=== PATIENT | female | born 1985 | race African-American/Black ===

== ENCOUNTER 2017-03-23 05:08 | Day surgery (SDC) | payer OTHER ==
[2017-03-16 11:41] VITALS: BMI 43.0
[2017-03-23] MEDS ORDERED: DESFLURANE GAS 240 ML BOTTLE IH ONE (07:20)
[2017-03-23] MEDS ORDERED: MIDAZOLAM HCL 2 MG/2 ML SINGLE DOSE VIAL ONE (07:24)
[2017-03-23] MEDS ORDERED: fentaNYL CITRATE 250 MCG/5 ML VIAL ONE (08:05)
[2017-03-23] MEDS ORDERED: LIDOCAINE HCL/PF 2% SDV 5ML VIAL ONE (08:05)
[2017-03-23] MEDS ORDERED: PROPOFOL 20 ML ONE (08:05)
[2017-03-23] MEDS ORDERED: SUCCINYLCHOLINE CHLORIDE 200 MG/10 ML VIAL ONE (08:06)
[2017-03-23] MEDS ORDERED: ROCURONIUM BROMIDE 50 MG/5 ML VIAL ONE (08:06)
[2017-03-23] MEDS ORDERED: DEXAMETHASONE SOD PHOSPHATE 4 MG/1 ML VIAL ONE (08:14)
[2017-03-23] MEDS ORDERED: KETOROLAC TROMETHAMINE 30 MG/1 ML VIAL ONE (08:14)
[2017-03-23] MEDS ORDERED: ceFAZolin SODIUM 1 GM VIAL IVPB ONE (08:20)
[2017-03-23] MEDS ORDERED: BUPIVACAINE HCL/PF 0.5% (5MG/ML) 10 ML VIAL IJ ONE (09:25)
[2017-03-23] MEDS ORDERED: NEOSTIGMINE METHYLSULFATE 0.5 MG/ML - 10 ML MDV ONE ×2 (09:32)
[2017-03-23] MEDS ORDERED: GLYCOPYRROLATE 0.2 MG/1 ML VIAL ONE ×2 (09:32)
[2017-03-23] MEDS ORDERED: ONDANSETRON 4 MG/2 ML VIAL IVPB PRN (09:35)
[2017-03-23] MEDS ORDERED: MEPERIDINE HCL CARPU-JECT 50 MG/1 ML DISP.SYRIN IM PRN (09:35)
[2017-03-23] MEDS ORDERED: HYDROmorphone HCL CARPU-JECT 1 MG/1 ML DISP.SYRIN IVPB PRN (09:36)
[2017-03-23] MEDS ORDERED: SODIUM CHLORIDE 1,000 ML IV SCH (09:45)
[2017-03-23] MEDS ORDERED: PROMETHAZINE HCL 25 MG/1 ML VIAL IVPUSH PRN (09:46)
[2017-03-23] MEDS ORDERED: ONDANSETRON 4 MG/2 ML VIAL IVPUSH PRN (09:46)
[2017-03-23] MEDS ORDERED: oxyCODONE HCL 5 MG TABLET PO PRN (09:46)
--- NOTE | 2017-03-23 09:59 | OP ---
Operative Note - Note: Operative Date: 03/23/17 Pre-Operative Diagnosis: Morbid Obesity Operation: Laparoscopic Gastric Band. Wedge Biopsy of Liver. Diagnostic Laparoscopy Findings: 30 cc proximal gastric pouch created Very enlarged Liver Left Lobe of Liver wedge biopsy performed Implants: Gastric Band plus subcutaneous port Post-Operative Diagnosis: Same as Pre-op (Hepatomegaly) Surgeon: Livan Cosme Residential Installer: Nikko Lugo Anesthesia: General Specimens Removed: Wedge biopsy left lobe of liver Estimated Blood Loss (mls): 30 Operative Report Dictated: Yes
[2017-03-23] MEDS ORDERED: FAMOTIDINE IV 20 MG/12 ML VIAL IVPB SCH (10:00)
[2017-03-23] MEDS ORDERED: LACTATED RINGERS SOLUTION 1,000 ML IV SCH (10:00)
[2017-03-23] MEDS ORDERED: FAMOTIDINE 20 MG/50 ML IVPB 20 MG/50 ML MG IVPB ONE (10:23)
[2017-03-23] MEDS ORDERED: FAMOTIDINE 20 MG PREMIXED IVPB IVPB ONE (10:27)
[2017-03-23] MEDS ORDERED: ONDANSETRON 4 MG/2 ML VIAL IVPUSH ONE (10:30)
--- NOTE | 2017-03-23 10:33 | OP ---
Operative Note - Note: Operative Date: 03/23/17 Pre-Operative Diagnosis: Intraoperative evaluation for leak/obstruction s/p gastric band placement Operation: Upper endoscopy/EGD Post-Operative Diagnosis: Other (No leak/obstruction) Surgeon: Nikko Lugo Anesthesia: General Specimens Removed: None Estimated Blood Loss (mls): 0 Operative Report Dictated: Yes
[2017-03-23 10:39] LABS: HEMATOCRIT 38.3 % (32.4-45.2); HEMOGLOBIN 12.8 GM/dL (10.7-15.3); MCH 27.6 pg (25.7-33.7); MCHC 33.4 g/dl (32.0-36.0); MEAN CELL VOLUME 82.5 fl (80-96); MEAN PLT VOLUME 9.5 fl (7.5-11.1); PLATELET COUNT 145 K/MM3 (134-434); RBC 4.64 M/mm3 (3.60-5.2); WHITE BLOOD COUNT 6.3 K/mm3 (4.0-10.0)
[2017-03-23 11:03] LABS: ANION GAP 5 (8-16); BLOOD UREA NITROGEN 13 mg/dL (7-18); CALCIUM 8.1 mg/dL (8.5-10.1); CHLORIDE 108 mmol/L (98-107); CO2 27 mmol/L (21-32); CREATININE 0.8 mg/dL (0.55-1.02); GLUCOSE,RANDOM 120 mg/dL (74-106); POTASSIUM 5.1 mmol/L (3.5-5.1); SODIUM 140 mmol/L (136-145)
[2017-03-23] MEDS ORDERED: ENOXAPARIN NA (PORCINE) 40 MG/0.4 ML DISP.SYRIN SQ ONE (13:00)
[2017-03-23 14:34] VITALS: TEMP 98.4
[2017-03-23 15:51] VITALS: BP 138/78; PULSE 92
--- NOTE | 2017-03-24 08:51 | OP ---
DATE OF OPERATION: 03/23/2017 SURGEON: Priya Lugo MD PREOPERATIVE DIAGNOSIS: Rule out leak/obstruction as an intraoperative consult during a gastric band placement. PROCEDURE: Intraoperative upper endoscopy/esophagogastroduodenoscopy. . POSTOPERATIVE DIAGNOSIS: No leak or obstruction. SPECIMEN: None. ANESTHESIA: GET. DRAINS: None. REASONS/PROCEDURE: This is a 31-year-old female who underwent a gastric band placement by Dr. Livan Cosme. Intraoperative endoscopy was requested to evaluate for leak or obstruction. An endoscope was placed into the esophagus, GE junction, and stomach. The entirety of the esophagus, GE junction, and the stomach were inspected. No leak or obstruction was identified throughout. The stomach was suctioned, and the endoscope removed. Patient tolerated the procedure, and the remainder of the gastric band placement was continued. PRIYA LUGO M.D. NELSY/[id number] MTDD
--- NOTE | 2017-03-24 10:16 | OP ---
DATE OF OPERATION: 03/23/2017 PREOPERATIVE DIAGNOSIS: Morbid obesity. POSTOPERATIVE DIAGNOSES: 1. Morbid obesity. 2. Hepatomegaly. PROCEDURE PERFORMED: 1. Gastric band for gastric restriction. 2. Wedge biopsy, left lobe of the liver. 3. Diagnostic laparoscopy. OPERATING SURGEON: Livan Cosme MD AEROBICS INSTRUCTOR: Nikko Lugo MD ANESTHESIA: General. EXPECTED BLOOD LOSS: 30 mL. OPERATIVE PROCEDURE: The patient was brought into the operating room, placed on the OR table in the supine position. All precautions were taken initially, including padding for the back and the feet, and Venodyne boots were placed on both lower extremities. At that point, the abdomen was prepped and draped in the usual manner. A Veress needle was placed in the left upper quadrant and a pneumoperitoneum was established. A No. 12 bladeless trocar was placed in the left upper quadrant. Through the trocar, a laparoscopic camera was placed. Under direct vision, No. 5 and 15 bladeless trocars were placed in the right upper quadrant and a No. 12 bladeless trocar below the left costal margin. A Ezequiel liver retractor was then placed in the epigastrium to retract left lobe of liver. The left lobe was noted to be extremely enlarged and difficult to retract. Because of the size of the liver, it was decided that a biopsy would be performed. With the electrocautery turned high, first the edge of the left lobe of the liver was scored with the cautery. This continued with the electrocautery through the parenchyma until a wedge piece was removed and sent off the field as a specimen to Pathology. The parenchymal bleeding which was very, very minimal was easily controlled with electrocautery. The patient was then placed in a 20-degree reverse Trendelenburg position by Anesthesia. As the university administrative assistant surgeon retracted the omentum inferiorly, the operating surgeon retracted the fundus toward the patient's right side. Electrocautery was then used to score the peritoneum over the left esophagogastric junction and this continued superiorly until the left hiral of the diaphragm was noted. The stomach was then pulled to the patient's left side by the university administrative assistant surgeon as the operating surgeon located the caudate lobe of the liver. An opening was made in an avascular plane and then the right hiral of the diaphragm was noted. With the university administrative assistant surgeon retracting the stomach and the lesser curvature of the stomach toward the patient's left side, the operating surgeon scored the anterior edge of the right hiral with electrocautery. At that point, a laparoscopic instrument was bluntly used to dissect and a laparoscopic instrument was then placed from the right hiral to the left hiral until it was free in the left upper quadrant of the abdomen. The gastric band which was an AP standard band was then prepped by the OR team, placed through the No. 15 port site. The band tubing was placed into the laparoscopic instrument which was then pulled and withdrawn to the patient's right side. The band tubing placed into the band buckle which was tied or cinched down and the band was rotated to the patient's right side. The laparoscopic instrument easily fit between the band and the anterior stomach wall. The band was then sewn in place with the EndoStitch which was used to grab a bite of stomach as well as above and below the band and tied over the band. When it was completed, the band tubing brought out through the No. 15 port site and under direct vision all trocars were removed and the pneumoperitoneum released. The No. 15 port site was extended laterally and dissection continued down to the right anterior rectus muscle fascia. Prolene 2-0 sutures were placed on all 4 sides and the port was then attached to the right anterior rectus muscle. At that point, all trocar sites received 0.25% Marcaine, were closed with 4-0 Biosyn in subcuticular fashion. The port site was first closed with 3-0 Vicryl in the subcutaneous tissue followed by 4-0 Biosyn in subcuticular fashion. Dressings were applied. The patient awoke from anesthesia and transferred out of the operating room to the recovery room in stable condition. Lori [id number]
--- NOTE | 2017-03-24 11:20 | OP ---
DATE OF OPERATION: 03/23/2017 ADDENDUM It should be noted that at the termination of the placement of the band around the stomach, that the band was then sewn in place. Then, Dr. Lugo, the costumer assistant surgeon, scrubbed out and performed an upper endoscopy. The details of his procedure will be described in his procedure note, but essentially it showed that there were no signs of any injury to the stomach and no signs of any leakage, and also, he was able to negotiate past the band into distal stomach showing no signs of obstruction. YOSELIN PIEDRA M.D. [id number]
--- NOTE | 2017-03-24 17:35 | PATH ---
Surgical Pathology Report Patient Name: JOANNE GROVER [facility]. Rec. #: [id number] /Age/Gender: 1985 (Age: 31) / F Account: [id number] Location: [facility] SURGICAL Taken: 03/23/2017 Received: 03/23/2017 Reported: 03/24/2017 Physicians: Livan Cosme M.D. Specimen(s) Received LIVER BIOPSY Clinical History Morbid obesity Final Diagnosis LIVER, BIOPSY: LIVER PARENCHYMA WITH MINIMAL STEATOSIS (<1%). NO INCREASE IN IRON AND FIBROSIS ON PERFORMED SPECIAL STAINS (IRON AND TRICHROME). Comment: Subcapsular biopsy with thermal artifact. Electronically Signed Inocencia Reese M.D. Gross Description Received in formalin labeled "liver biopsy," is a 2.0 x 0.8 x 0.5 cm forrest, irregular portion of soft tissue, consistent with a liver biopsy. The specimen is bisected and entirely submitted in one cassette. 03/23/2017 [facility]03/23/2017
== END 2017-03-23 15:45 | disposition home or self-care (01) ==
LOC: JASU-SURG 05:08
PROVIDERS: ATTEND Surgery
PROC: 0FB24ZX Excision of Left Lobe Liver, Percutaneous Endoscopic Approach, Diagnostic (ICD-10-PCS; 2017-03-23)
PROC: 0DJ08ZZ Inspection of Upper Intestinal Tract, Via Natural or Artificial Opening Endoscopic (ICD-10-PCS; 2017-03-23)
PROC: 0DV64CZ Restriction of Stomach with Extraluminal Device, Percutaneous Endoscopic Approach (ICD-10-PCS; principal; 2017-03-23 07:30)
DX: E66.01 Morbid (severe) obesity due to excess calories (principal); R16.0 Hepatomegaly, not elsewhere classified
CPT/HCPCS: 36415; 74241-TC; 80048; 84703; 85027; 88307-TC; 88313-TC; 94010; 94760

== ENCOUNTER 2021-03-29 04:50 | Day surgery (SDC) | payer BC ==
[2021-03-24 10:46] VITALS: BMI 37.4
[~2021-03-29 04:50] MED LIST: BUPIVACAINE HCL/PF 0.5% (5MG/ML) 10 ML VIAL IJ ONE
[2021-03-29 12:52] LABS: INR 1.14 (0.83-1.09); PROTHROMBIN TIME (PATIENT) 12.8 SEC (9.7-13.0)
[2021-03-29] MEDS ORDERED: fentaNYL CITRATE 250 MCG/5 ML VIAL ONE (13:12)
[2021-03-29] MEDS ORDERED: BUPIVACAINE HCL/PF 0.5% (5MG/ML) 10 ML VIAL ONE (13:13)
[2021-03-29] MEDS ORDERED: PROPOFOL 20 ML ONE ×2 (13:13)
[2021-03-29] MEDS ORDERED: SUCCINYLCHOLINE CHLORIDE 200 MG/10 ML SYRINGE ONE (13:13)
[2021-03-29] MEDS ORDERED: ROCURONIUM BROMIDE 50 MG/5 ML SYRINGE ONE (13:13)
[2021-03-29] MEDS ORDERED: MIDAZOLAM HCL 2 MG/2 ML SINGLE DOSE VIAL ONE (13:13)
[2021-03-29] MEDS ORDERED: ceFAZolin SODIUM 1 GM VIAL IVPB ONE (13:48)
[2021-03-29] MEDS ORDERED: DEXAMETHASONE SOD PHOSPHATE 4 MG/1 ML VIAL ONE (13:49)
[2021-03-29] MEDS ORDERED: KETOROLAC TROMETHAMINE 30 MG/1 ML VIAL ONE (13:49)
[2021-03-29] MEDS ORDERED: LIDOCAINE HCL 2% JELLY (5 ML/TUBE) ONE (13:49)
[2021-03-29] MEDS ORDERED: ceFAZolin SODIUM 1 GM VIAL ONE (13:49)
[2021-03-29] MEDS ORDERED: ONDANSETRON 4 MG/2 ML VIAL ONE (13:49)
[2021-03-29] MEDS ORDERED: TRIAMCINOLONE ACET 40MG/1ML VIAL ONE (15:08)
[2021-03-29] MEDS ORDERED: NEOSTIGMINE METHYLSULFATE 0.5 MG/1 ML - 10 ML MDV ONE (15:12)
[2021-03-29] MEDS ORDERED: TRIAMCINOLONE ACETONIDE 40 MG/ML 10 ML VIAL IJ ONE (15:21)
[2021-03-29] MEDS ORDERED: ONDANSETRON 4 MG/2 ML VIAL IVPUSH PRN ×2 (15:48→16:12)
[2021-03-29] MEDS ORDERED: HYDROmorphone HCl 2 MG/ML VIAL IVPB PRN ×2 (15:50→15:51)
[2021-03-29] MEDS ORDERED: SODIUM CHLORIDE 1,000 ML IV SCH (16:00)
[2021-03-29] MEDS ORDERED: PROMETHAZINE HCL 25 MG/1 ML VIAL IVPUSH PRN (16:12)
[2021-03-29] MEDS ORDERED: oxyCODONE HCL 5 MG TABLET PO PRN ×2 (16:12)
[2021-03-29 16:54] LABS: HEMATOCRIT 33.6 % (32.4-45.2); HEMOGLOBIN 11.7 GM/dL (10.7-15.3); MCH 27.6 pg (25.7-33.7); MCHC 34.9 g/dl (32.0-36.0); MEAN CELL VOLUME 79.1 fl (80-96); MEAN PLT VOLUME 8.6 fl (7.5-11.1); PLATELET COUNT 187 10^3/uL (134-434); RBC 4.25 M/mm3 (3.60-5.2); RDW 13.1 % (11.6-15.6); WHITE BLOOD COUNT 6.3 K/mm3 (4.0-10.0)
[2021-03-29 17:12] LABS: CALCIUM 8.5 mg/dL (8.5-10.1)
[2021-03-29 17:13] LABS: BLOOD UREA NITROGEN 12.6 mg/dL (7-18)
[2021-03-29 17:16] LABS: CREATININE 0.7 mg/dL (0.55-1.3)
[2021-03-29 18:24] VITALS: BP 119/65; PULSE 66; TEMP 97.5
[2021-03-29] MEDS ORDERED: FAMOTIDINE 20 MG/50 ML IVPB 20 MG/50 ML MG IVPB SCH (22:00)
== END 2021-03-29 18:20 | disposition home or self-care (01) ==
LOC: JASU-SURG 04:50
PROVIDERS: ATTEND Surgery
PROC: 0JB80ZZ Excision of Abdomen Subcutaneous Tissue and Fascia, Open Approach (ICD-10-PCS; 2021-03-29)
PROC: 0DP64JZ Removal of Synthetic Substitute from Stomach, Percutaneous Endoscopic Approach (ICD-10-PCS; principal; 2021-03-29 13:00)
DX: T85.518A Breakdown (mechanical) of other gastrointestinal prosthetic devices, implants and grafts, initial encounter (principal); R10.13 Epigastric pain; R11.11 Vomiting without nausea; K21.9 Gastro-esophageal reflux disease without esophagitis; K66.0 Peritoneal adhesions (postprocedural) (postinfection)
CPT/HCPCS: 36415; 80048; 81025; 85027; 85610; 86850; 86900; 86901; 88300-TC; 88304-TC; 94760